=== PATIENT | male | born 1980 | race Caucasian/White ===

== ENCOUNTER 2017-04-05 16:18 | Emergency (ER) | payer SELFPAY ==
[2017-04-05 16:23] VITALS: BP 128/88; BMI 26.6
[2017-04-05 18:34] LABS: BASOPHILS # (AUTO) 0.1 X10^3/uL (0.0-0.1); BASOPHILS % (AUTO) 0.9 % (0.2-1.0); EOSINOPHILS # (AUTO) 0.1 x10^3/uL (0.0-0.2); EOSINOPHILS % (AUTO) 0.8 % (0.9-2.9); HEMATOCRIT 47.2 % (42.0-54.0); HEMOGLOBIN 16.3 g/dL (13.5-18.0); LYMPHOCYTES # (AUTO) 1.6 X10^3/uL (1.3-2.9); MEAN CORPUSCULAR HEMOGLOBIN 31.8 pg (27.0-34.0); MEAN CORPUSCULAR HGB CONC 34.4 g/dL (33.0-35.0); MEAN CORPUSCULAR VOLUME 92.3 fL (80.0-100.0); MEAN PLATELET VOLUME 8.8 fL (7.4-11.0); NEUTROPHILS # (AUTO) 9.3 x10^3/uL (2.2-4.8); NEUTROPHILS % (AUTO) 77.3 % (42.0-75.0); PLATELET COUNT 320 X10^3/uL (150.0-450.0); RED BLOOD COUNT 5.12 X10^6/uL (4.7-6.0); RED CELL DISTRIBUTION WIDTH 13.2 % (11.6-16.5)
[2017-04-05 18:44] LABS: ALANINE AMINOTRANSFERASE 132 Units/L (12-78); ALBUMIN 3.8 g/dL (3.4-5.0); ALKALINE PHOSPHATASE 69 Units/L (46-116); ASPARTATE AMINO TRANSFERASE 70 Units/L (15-37); BLOOD UREA NITROGEN 10 mg/dL (7-18); CALCIUM 9.2 mg/dL (8.5-10.1); CARBON DIOXIDE 29.9 mmol/L (21-32); CHLORIDE 104 mmol/L (98-107); CREATININE 0.95 mg/dL (0.70-1.30); SODIUM 140 mmol/L (136-145); eGFR BLACK RACES > 60 (>60); eGFR NON BLACK RACES > 60 (>60)
[2017-04-05 18:54] LABS: LACTIC ACID 1.2 mmol/L (0.4-2.0)
[2017-04-05] MEDS ORDERED: CLEOCIN 300 MG IV PREMIX 300 MG/50 ML BAG IV ONE ×2 (19:10→19:23)
[2017-04-05] MEDS ORDERED: CLEOCIN 600 MG IV PREMIX 600 MG/50 ML BAG IV ONE (19:11)
[2017-04-05] MEDS ORDERED: NS 100 ML IV 100 ML IV ONE (19:24)
[2017-04-05] MEDS ORDERED: NS IRRIGATION 1000 ML 1,000 ML ONE (19:24)
[2017-04-05] MEDS ORDERED: CLEOCIN VIAL 600 MG ONE (19:24)
[2017-04-05] MEDS ORDERED: NS 50 ML IV 0 ML IV ONE (19:25)
--- NOTE | 2017-04-05 19:25 | DR.GENAD ---
HPI - PCP Primary Care Physician: NONE - Complaint/Symptoms Chief Complaint Doctors Comments: Patient presents with a oozing lesion of volar surface of right upper extremity. He states that the lesion has been present for 3-4 days. He denies fever. Chief Complaint:: "I THINK A SPIDER BITE ME OR STAPH." Self Treatment fo Chief Complaint: NONE - Source History Provided: Patient - Mode of Arrival Mode of Arrival: Ambulatory - Timing Onset of Chief Complaint: 03/30/17 PMH - PMH Past Medical History: No Past Surgical History: Yes Past Surgical History Comment: HERNIA SURGERY - Family History History of Family Medical Conditions: No Family Medical History: Cancer - Social History Does patient currently use any type of tobacco product: Yes Have you used tobacco products in the last 12 months: Yes Type of Tobacco Use: Cigarettes How many years tobacco product used: 20 Does any household member use tobacco: Yes Alcohol Use: None Do you use any recreational Drugs:: No Lives With: Family Lives Where: Home - infectious screening In the last 2 months have you had wt loss of >10#?: NO Have you had fever, night sweats or hemotysis?: No Have you traveled outside the country in the last 6 months?: No Isolation: Standard ROS - Review of Systems Eyes: No Symptoms Reported ENTM: No Symptoms Reported Respiratoy: No Symptoms Reported Cardiovascular: No Symptoms Reported Gastrointestinal/Abdominal: No Symptoms Reported Genitourinary: No Symptoms Reported Neurological: No Symptoms Reported Musculoskeletal: No Symptoms Reported Integumentary: Lesions (3cm circular lesion right proximal forearm) Hematologic/Lymphatic: No Symptoms Reported Endocrine: No Symptoms Reported Psychiatric: No Symptoms Reported All Other Systems: Reviewed and Negative PE - Vital Signs Vitals: Temperature 98.5 F Pulse Rate 119 Respiratory Rate 20 Blood Pressure 128/88 O2 Sat by Pulse Oximetry 96 - General Limitations: No Limitations General Appearance: Alert, In No Apparent Distress - Head Head Exam: Normal Inspection, Atraumatic - Eyes Eye exam: Normal Appearance, PERRL, EOMI - ENT ENT Exam: Normal Exam External Ear Exam: Normal External Inspection TM/Canal Exam: Bilateral Normal Nose Exam: Normal Nose Exam Mouth Exam: Normal Inspection Throat Exam: Normal Inspection - Neck Neck Exam: Normal Inspection, Full ROM - Chest Chest Inspection: Normal Inspection - Respiratory Respiratory Exam: Normal Lung Sounds Bilat Respiratory Exam: Bilateral Clear to Auscultation - Cardiovascular Cardiovascular Exam: Regular Rate, Normal Rhythm - Abdominal Exam Abdominal Exam: Normal Inspection, Normal Bowel Sounds Abdominal Tenderness: negative: RUQ, RLQ, LUQ, LLQ, Epigastrium, Suprapubic, Diffuse, Mild, Moderate, Severe, Other - Extremities Extremities Exam: Normal Inspection, Full ROM, Tenderness - Back Back Exam: Normal Inspection, Full ROM - Neurologic Neurological Exam: Alert, Oriented X3, CN II-XII Intact - Psychiatric Psychiatric Exam: Normal Affect - Skin Skin Exam: Warm, Dry, Intact Course - Treatment Treatment: Lesion irrigated, cleaned with dankin soln and iodoform gauze dressed by nurse. 1%lidocaine used for analgesis. Tolerated procedure well. Blood cultures obtained - Reevaluation 1st: Improved ROR - Labs Reviewed Result Diagrams: 04/05/17 18:23 04/05/17 18: Laboratory: 04/05/17 18: Arm - Abscess Gram Stain - Final WBC 12.0 X10^3/uL (3.6-10.0) H 04/05/17 18: RBC 5.12 X10^6/uL (4.7-6.0) 04/05/17 18:23 Hgb 16.3 g/dL (13.5-18.0) 04/05/17 18:23 Hct 47.2 % (42.0-54.0) 04/05/17 18:23 MCV 92.3 fL (80.0-100.0) 04/05/17 18:23 MCH 31.8 pg (27.0-34.0) 04/05/17 18: MCHC 34.4 g/dL (33.0-35.0) 04/05/17 18:23 RDW 13.2 % (11.6-16.5) 04/05/17 18:23 Plt Count 320 X10^3/uL (150.0-450.0) 04/05/17 18: MPV 8.8 fL (7.4-11.0) 04/05/17 18:23 Neut % 77.3 % (42.0-75.0) H 04/05/17 18:23 Lymph % 13.0 % (21.0-51.0) L 04/05/17 18: Placer % 8.0 % (0.0-13.0) 04/05/17 18:23 Eos % 0.8 % (0.9-2.9) L 04/05/17 18:23 Baso % 0.9 % (0.2-1.0) 04/05/17 18:23 Neut # 9.3 x10^3/uL (2.2-4.8) H 04/05/17 18:23 Lymph # 1.6 X10^3/uL (1.3-2.9) 04/05/17 18: Placer # 1.0 x10^3/uL (0.3-0.8) H 04/05/17 18:23 Eos # 0.1 x10^3/uL (0.0-0.2) 04/05/17 18: Baso # 0.1 X10^3/uL (0.0-0.1) 04/05/17 18:23 Absolute Nucleated RBC 0.0 /100WBC 04/05/17 18:23 Sodium 140 mmol/L (136-145) 04/05/17 18:23 Corrected Sodium TNP 04/05/17 18:23 Potassium 4.5 mmol/L (3.5-5.1) 04/05/17 18:23 Chloride 104 mmol/L (98-107) 04/05/17 18:23 Carbon Dioxide 29.9 mmol/L (21-32) 04/05/17 18:23 BUN 10 mg/dL (7-18) 04/05/17 18:23 Creatinine 0.95 mg/dL (0.70-1.30) 04/05/17 18:23 Est GFR (MDRD) Af Amer > 60 (>60) 04/05/17 18:23 Est GFR (MDRD) Non-Af > 60 (>60) 04/05/17 18:23 Glucose 99 mg/dL (65-99) 04/05/17 18:23 Lactic Acid 1.2 mmol/L (0.4-2.0) 04/05/17 18:23 Calcium 9.2 mg/dL (8.5-10.1) 04/05/17 18:23 Corrected Calcium TNP 04/05/17 18:23 Total Bilirubin 0.30 mg/dL (0.2-1.0) 04/05/17 18:23 AST 70 Units/L (15-37) H 04/05/17 18:23 ALT 132 Units/L (12-78) H 04/05/17 18:23 Alkaline Phosphatase 69 Units/L (46-116) 04/05/17 18:23 C-Reactive Protein 11.10 mg/L (0-3.0) H 04/05/17 18:23 Total Protein 8.0 g/dL (6.4-8.2) 04/05/17 18:23 Albumin 3.8 g/dL (3.4-5.0) 04/05/17 18:23 Globulin 4.2 g/dL (2.5-4.5) 04/05/17 18:23 Albumin/Globulin Ratio 0.9 Ratio (1.1-2.1) L 04/05/17 18:23 - Diagnosis Discharge Problem: Cellulitis of forearm, right - Discharge Plan Condition: Stable - Follow ups/Referrals Follow ups/Referrals: NFD,None [Primary Care Provider] - 3 days - Instructions
[2017-04-05] MEDS ORDERED: D5W 250 ML IV 250 ML IV ONE (19:26)
[2017-04-05] MEDS ORDERED: XYLOCAINE 1% and EPINEPHRINE 1:100,000 ONE (19:36)
[2017-04-05] MEDS ORDERED: DAKINS SOLUTION HALF STRENGTH 0.25% EXT ONE (20:10)
== END 2017-04-05 20:45 | disposition home or self-care (01) ==
LOC: ER 17:24
DX: L03.113 Cellulitis of right upper limb (principal); B95.62 Methicillin resistant Staphylococcus aureus infection as the cause of diseases classified elsewhere
CPT/HCPCS: 36415; 80053; 83605; 85025; 86140; 87070; 87077; 87186; 87205; 96365; 96374; 96375; 99283; A4222; S0077; J2001

== ENCOUNTER → 2017-08-14 | Day surgery (SDC) | payer OTHER ==
[~2017-08-14] MED LIST: ANCEF 1 GM IV PREMIX* 1 GM/50 ML BAG IV ONE; BENADRYL INJ 50 MG VIAL IVP PRN; DECADRON INJ ONE; DEMEROL INJ IVP PRN; DILAUDID INJ IVP PRN; DIPRIVAN VIAL ONE; EPHEDRINE SULFATE INJ ONE; FENTANYL INJ 250 mcg ONE; LTA KIT LIDOCAINE 4% ONE; MARCAINE 0.25% INJ ONE; NEOSTIGMINE INJ ONE; NORCURON INJ 10 MG VIAL ONE; NS 1000 ML 1,000 ML ONE; NS 500 ML IV 500 ML IV ONE; NS IRRIGATION 1000 ML 1,000 ML IR ONE; PERCOCET TAB 5/325 MG PO PRN; PHENERGAN INJ 25 MG IVP PRN; QUELICIN (OR ANECTINE) ONE; REGLAN INJ 10 MG VIAL IVP PRN; ROBINUL ONE; SUPRANE IN ONE; TORADOL 60 MG VIAL IM ONE; TORADOL 60 MG VIAL ONE; VANCOMYCIN HCL 1 GM VIAL ONE; VERSED ONE; XYLOCAINE 1% and EPINEPHRINE 1:100,000 ONE; XYLOCAINE 2 % (PLAIN) ONE; ZOFRAN INJ 4 MG VIAL IVP PRN; ZOFRAN INJ 4 MG VIAL ONE
--- NOTE | 2017-08-14 08:39 | DR.GENAD ---
HPI - PCP Primary Care Physician: NFD - Complaint/Symptoms Chief Complaint Doctors Comments: Patient is complaining of right lower pelvic pain that goes to his scrotum for the past 2-3 days getting worst today. Patient states he has a hernia that was fixed by Dr. Simon before he and he was told not to worry if he can make it go back down but recently he has not been able to have the swelling in his right inguinal area togo away completely. states the pain is 10 of10 and is worst when he moves. He denies fever, chills, nausea or vomiting. He denies hematuria,nocturia but has noticed that he does not empty his bladder completely when he urinates. He denies any recent trauma. Chief Complaint:: PT C/O RT GROIN AND RT SCROTAL PAIN. PT STATES HE HAS A HISTORY A HERNIA I THE SAME PLACE WHICH HE HAS HAD REPAIRED. PT STATES THE PAST FEW DAYS HE HAS NOTICED IT GETTING BIGGER IN SIZE AND THE PAIN HAS BEEN UNBEARABLE. - Nurses notes reviewed Nurses Notes Review: Yes - Source History Provided: Patient, [employer] - Mode of Arrival Mode of Arrival: Ambulatory - Timing Onset of Chief Complaint: 08/12/17 Came on: Gradually - Duration Duration: Intermittent How lon Duration: Days - Location Location: right groin - Severity Severity: Moderate - Modifying Factors Worsens:: movement and walking Improves:: nothing PMH - PMH Past Medical History: No Past Surgical History: Yes Past Surgical History Comment: HERNIA REPAIR - Family History History of Family Medical Conditions: Yes Family Medical History: Cancer - Social History Does patient currently use any type of tobacco product: Yes Have you used tobacco products in the last 12 months: Yes Type of Tobacco Use: Cigarettes Does any household member use tobacco: Yes Alcohol Use: None Do you use any recreational Drugs:: No Lives With: Other Lives Where: Home - infectious screening In the last 2 months have you had wt loss of >10#?: NO Have you had fever, night sweats or hemotysis?: No Have you traveled outside the country in the last 6 months?: No Isolation: Standard ROS - Review of Systems Constitutional: No Symptoms Reported. negative: See HPI, Chills, Diaphoresis, Fever, Malaise, Weakness, Irritable, Fatigue, Loss of Appetite, Other Eyes: No Symptoms Reported ENTM: No Symptoms Reported Respiratoy: No Symptoms Reported Cardiovascular: No Symptoms Reported. negative: See HPI, Chest Pain, Edema, Palpitations, Syncope, Cyanosis, Skin Mottling, Other Gastrointestinal/Abdominal: No Symptoms Reported. negative: See HPI, Abdominal Pain, Constipation, Diarrhea, Nausea, Vomiting, Food Intolerance, Other Genitourinary: No Symptoms Reported. negative: See HPI, Discharge, Dysuria, Frequency, Hematuria, Pain, Bleeding, Other Neurological: No Symptoms Reported Musculoskeletal: No Symptoms Reported Integumentary: No Symptoms Reported Hematologic/Lymphatic: No Symptoms Reported. negative: See HPI, Anemia, Blood Clots, Easy Bleeding, Easy Bruising, Swollen Glands, Lymphadenopathy, Other Endocrine: No Symptoms Reported Psychiatric: No Symptoms Reported PE - Vital Signs Vitals: Temperature 98.7 F Pulse Rate 79 Respiratory Rate 20 Blood Pressure 147/71 O2 Sat by Pulse Oximetry 100 - General Limitations: No Limitations General Appearance: Alert, In Distress (mild) - Head Head Exam: Normal Inspection, Atraumatic, Normocephalic - Eyes Eye exam: Normal Appearance, PERRL, EOMI. negative: Scleral Icterus, Conjunctival Injection, Nystagmus, Miosis, Mydrasis, Periorbital Swelling, Periorbital Tenderness, Other - ENT ENT Exam: Normal Exam, Normal Oropharynx, Normal External Ear Exam, Mucous Membranes Moist, TM's Normal Bilaterally External Ear Exam: Normal External Inspection TM/Canal Exam: Bilateral Normal Nose Exam: Normal Nose Exam Mouth Exam: Normal Inspection. negative: Drooling, Trismus, Lip Swelling, Tongue Elevation, Tongue Swelling, Laceration, Other Throat Exam: Normal Inspection - Neck Neck Exam: Normal Inspection, Full ROM, Trachea Midline. negative: Tenderness, Meningismus, Lymphadenopathy, Thyromegaly, Other - Chest Chest Inspection: Normal Inspection, Symmetric Chest Wall Rise - Respiratory Respiratory Exam: Normal Lung Sounds Bilat Respiratory Exam: Bilateral Clear to Auscultation - Cardiovascular Cardiovascular Exam: Regular Rate, Normal Rhythm, Normal Heart Sounds. negative : Bradycardia, Tachycardia, Irregular Rhythm, Systolic Murmur, Diastolic Murmur , Rubs, Gallop, Clicks, JVD, +S1, +S2, +S3, +S4, Other - Abdominal Exam Abdominal Exam: Normal Inspection, Normal Bowel Sounds, Soft Abdominal Tenderness: RLQ (right inguinal hernia 6 cm reduciable; tender. Scrotal exam normal; circucised;no penile discharge). negative: RUQ, LUQ, LLQ, Epigastrium, Suprapubic, Diffuse, Mild, Moderate, Severe, Other - Extremities Extremities Exam: Normal Inspection, Full ROM, Normal Capillary Refill. negative: Tenderness, Edema, Joint Swelling, Calf Tenderness, Other - Back Back Exam: Normal Inspection, Full ROM. negative: Tenderness, (R) CVA Tenderness, (L) CVA Tenderness, Muscle Spasm, Paraspinal Tenderness, Vertebral Tenderness, Rashes, (R) Sciatic Notch Tenderness, (L) Sciatic Notch Tendern, (R ) Straight Leg Raise, (L) Straight Leg Raise, Other - Neurologic Neurological Exam: Alert, Oriented X3, CN II-XII Intact, Reflexes Normal. negative: Normal Gait (gait not tested) - Psychiatric Psychiatric Exam: Normal Affect, Normal Mood - Skin Skin Exam: Warm, Dry, Intact, Normal Color Course - Consultation Called: 09:35 Call Returned: 09:35 (Dr. Donnelly to evaluate) - Education/Counseling Education/Counseling: Patient Educated On: Treatment, Diagnosis, Needs for Follow Up ROR - Labs Reviewed Laboratory Results Reviewed?: Yes (all x-ray results reviewed and discussed with patient) Laboratory: Specimen Type Random urine 08/14/17 09:36 Urine Color Yellow (YELLOW) 08/14/17 09:36 Urine Appearance Clear (CLEAR) 08/14/17 09:36 Urine pH 5.0 (5.0 - 8.0) 08/14/17 09:36 Ur Specific [place] 1.020 (1.000-1.030) 08/14/17 09:36 Urine Protein 1+ (NEGATIVE) 08/14/17 09:36 Urine Glucose (UA) Negative (NEGATIVE) 08/14/17 09:36 Urine Ketones Negative (NEGATIVE) 08/14/17 09:36 Urine Occult Blood 2+ (NEGATIVE) 08/14/17 09:36 Urine Nitrite Negative (NEGATIVE) 08/14/17 09:36 Urine Bilirubin Negative (NEGATIVE) 08/14/17 09:36 Urine Urobilinogen Normal (NORMAL) 08/14/17 09:36 Ur Leukocyte Esterase 1+ (NEGATIVE) 08/14/17 09:36 Urine RBC 0 - 2 /HPF (NEGATIVE) 08/14/17 09:36 Urine WBC 0 - 2 /HPF (NEGATIVE) 08/14/17 09:36 Ur Squamous Epith Cells Rare /HPF (NEGATIVE) 08/14/17 09:36 Amorphous Sediment Trace /HPF (NEGATIVE) 08/14/17 09:36 Urine Bacteria Negative /HPF (NEGATIVE) 08/14/17 09:36 Ur Culture Indicated? No/not indicated 08/14/17 09:36 Urine Opiates Screen Negative (NEG=<300) 08/14/17 09:37 Urine Methadone Screen Negative (NEG=<300) 08/14/17 09:37 Ur Barbiturates Screen Negative (NEG=<200) 08/14/17 09:37 Ur Phencyclidine Scrn Negative (NEG=<25) 08/14/17 09:37 Ur Amphetamines Screen Negative (NEG=<1000) 08/14/17 09:37 U Benzodiazepines Scrn Negative (NEG=<200) 08/14/17 09:37 Urine Cocaine Screen Negative (NEG=<300) 08/14/17 09:37 U Marijuana (THC) Screen Negative (NEG=<50) 08/14/17 09:37 - XRAY XRAY Interpreted by: Radiologist (CT abdomen: Right inguinal hernia containing fat and loop of small bowel wome evidence of stranding of fat within the hernia suggesting inflammation.) - Diagnosis Discharge Problem: Right inguinal hernia, possible incarcerated inguinal hernia - Discharge Plan Disposition: ADMITTED INPATIENT Condition: Stable - Follow ups/Referrals Follow ups/Referrals: NFD,None [Primary Care Provider] - 3 days - Instructions
[2017-08-14 08:40] VITALS: BMI 25.8
--- NOTE | 2017-08-14 09:02 | CT ---
STUDY: CT ABDOMEN AND PELVIS WITHOUT IV AND ORAL CONTRAST HISTORY: Right groin right scrotal pain. History of hernia. Comparison: None. Technique: Multiple axial images of the abdomen and pelvis were obtained from the lung bases to the pubic symphysis without the administration of IV contrast. Findings: The visualized portions of the lung bases are unremarkable. CT abdomen: The liver, gallbladder, spleen, pancreas, both kidneys and adrenal glands are normal in appearance. N o significant mesenteric lymphadenopathy or inflammatory stranding is appreciated. The stomach is normal in appearance. The small bowel is normal in appearance, without evidence of bow el wall thickening or small bowel obstruction. The terminal ileum and cecum are normal. The appendix is normal in appearance. There is no evidence of right lower quadrant fat stranding. The ascending a nd transverse colon are within normal limits. The descending colon is normal in appearance. CT pelvis: Note is made of a right inguinal hernia. This contains both fat and a small loop of bowel, likely loop of ileum. There is mild stranding of fat contained within the inguinal hernia. The sigmo id colon is normal in appearance. The rectum is normal. The urinary bladder is normal. No abnormal fl uid collections are identified in the pelvis. There is no evidence of acute osseous abnormality. IMPRESSION: 1. Right inguinal hernia containing fat and a loop of small bowel. No abnormal fluid collections are identified, and there is no evidence of dilated uterine loop. However, there does appear to be some evidence of stranding of fat within the hernia suggesting inflammation. Clinical correlation for inca rceration or strangulation is recommended. Reported By:
[2017-08-14 09:48] LABS: BILIRUBIN,URINE NEGATIVE (NEGATIVE); BLOOD/HEMOGLOBIN,URINE 2+ (NEGATIVE); GLUCOSE, URINE NEGATIVE (NEGATIVE); KETONES,URINE NEGATIVE (NEGATIVE); LEUKOCYTE ESTERASE ,URINE 1+ (NEGATIVE); NITRITES,URINE NEGATIVE (NEGATIVE); PROTEIN,URINE 1+ (NEGATIVE); UROBILINOGEN,URINE NORMAL (NORMAL)
[2017-08-14 09:55] LABS: APPEARANCE,URINE CLEAR (CLEAR); COLOR,URINE YELLOW (YELLOW)
[2017-08-14 10:03] LABS: BACTERIA,URINE NEGATIVE /HPF (NEGATIVE); RBC,URINE 0 - 2 /HPF (NEGATIVE); SQUAMOUS EPITHELIAL CELL,UR RARE /HPF (NEGATIVE)
[2017-08-14 10:04] LABS: AMORPHOUS SEDIMENT,UR TRACE /HPF (NEGATIVE)
[2017-08-14 11:34] LABS: BASOPHILS # (AUTO) 0.1 X10^3/uL (0.0-0.1); BASOPHILS % (AUTO) 1.1 % (0.2-1.0); EOSINOPHILS # (AUTO) 0.1 x10^3/uL (0.0-0.2); EOSINOPHILS % (AUTO) 0.7 % (0.9-2.9); HEMATOCRIT 44.5 % (42.0-54.0); HEMOGLOBIN 15.3 g/dL (13.5-18.0); LYMPHOCYTES # (AUTO) 1.9 X10^3/uL (1.3-2.9); MEAN CORPUSCULAR HGB CONC 34.4 g/dL (33.0-35.0); MEAN CORPUSCULAR VOLUME 92.8 fL (80.0-100.0); MEAN PLATELET VOLUME 8.8 fL (7.4-11.0); MONOCYTES # (AUTO) 0.7 x10^3/uL (0.3-0.8); MONOCYTES % (AUTO) 7.4 % (0.0-13.0); NEUTROPHILS # (AUTO) 6.4 x10^3/uL (2.2-4.8); NEUTROPHILS % (AUTO) 69.8 % (42.0-75.0); PLATELET COUNT 294 X10^3/uL (150.0-450.0); RED BLOOD COUNT 4.79 X10^6/uL (4.7-6.0); RED CELL DISTRIBUTION WIDTH 13.1 % (11.6-16.5); WHITE BLOOD COUNT 9.1 X10^3/uL (3.6-10.0)
[2017-08-14 11:49] LABS: ALANINE AMINOTRANSFERASE 116 Units/L (12-78); ALBUMIN 4.3 g/dL (3.4-5.0); ALKALINE PHOSPHATASE 59 Units/L (46-116); ASPARTATE AMINO TRANSFERASE 56 Units/L (15-37); BLOOD UREA NITROGEN 9 mg/dL (7-18); CALCIUM 9.1 mg/dL (8.5-10.1); CARBON DIOXIDE 26.4 mmol/L (21-32); CHLORIDE 101 mmol/L (98-107); CREATININE 0.78 mg/dL (0.70-1.30); SODIUM 132 mmol/L (136-145); eGFR BLACK RACES > 60 (>60); eGFR NON BLACK RACES > 60 (>60)
[2017-08-14] MEDS: NS 1000 ML 1,000 ML ONE ×2 (13:26→13:51)
--- NOTE | 2017-08-14 14:37 | OR.GENERIC ---
Post-Op Note Generic - Post-Op Note Operative Report: Date of Operation: August 14, 2017 Pre-Operative Diagnosis: Recurrent incarcerated right inguinal hernia. Post-Operative Diagnosis: Recurrent incarcerated right indirect inguinal hernia. Procedure: Open inguinal hernia repair with plug and mesh. Surgeon: Bairon Donnelly MD. Heel Sprayer First: Usman Cruz CRNA. Specimens: None. Estimated blood loss: Minimal. Complications: None. Summary: The patient is a 37 year old male who presented with an incarcerated recurrent right inguinal hernia. The patient was offered inguinal hernia repair. The risk and benefits of the procedure including difficulty with anesthesia, bleeding, infection, injury to intraabdominal contents requiring further surgery , recurrence, nerve injury, injury to cord structures requiring orchiectomy, DVT , as well as PE were discussed with the patient. The patient understood these risks and requested the procedure. On August 14, 2017, the patient was brought to the operative theatre. A time out was performed verifying the patient and procedure. The patient received Ancef for pre-operative antibiosis. After satisfactory induction of general endotracheal anesthesia, the abdomen and groin were prepped with Chloraprep and draped in the usual sterile fashion. Local anesthetic was infiltrated one fingerbreadth medial and inferior to the right anterior superior iliac spine ( ASIS). Next the skin between the pubic tubercle and the ASIS was anesthetized using local and incised with a scalpel. The incision was carried through the subcutaneous tissue and Scarpas fascia using electrocautery. The external oblique fibers were cleared bluntly. Local was injected under the oblique fibers. The external oblique was nicked with a scalpel and divided using Metzenbaum scissors taking care to avoid nerves. The external obliques were mobilized using blunt dissection. Extensive scar tissue was seen. After tedious dissection, the cord structures were encircled at the pubic tubercle and a stephanie placed around the cord. A hernia sac was bluntly dissected away from the cord structures. A mesh plug was placed beside the cord in the internal ring and tacked into position with 0-Vicryl sutures. Weakening of the floow was noted near the pubic tubercle. A Prolene mesh was fashioned to fit the inguinal floor. The apex of the mesh was anchored to the periosteum at the pubic tubercle with a 2-0 Prolene suture. The superior portion of the mesh was attached to the conjoined tendon using interrupted 2-0 Prolene sutures. The inferior portion of the mesh was sutured to the shelving portion of the inguinal ligament using interrupted 2-0 Prolene sutures. The external oblique fibers were re-approximated using a running 2-0 Vicryl suture. Scarpas fascia was re-approximated using interrupted 3-0 Vicryl sutures. The dermis was re- approximated using inverted, interrupted 3-0 Vicryl sutures. The skin edges were re-approximated using a running 4-0 Monocryl stitch. Mastisol and Steri- strips were placed. Sterile dressings were placed. The right testicle was palpated in the scrotum. The patient was awakened and taken to the recovery room in stable condition. There were no complications. All counts were correct.
[2017-08-14 15:51] VITALS: BP 143/70
== END | disposition home or self-care (01) ==
LOC: ER 08:39 → SURG1 11:45
PROVIDERS: ATTEND Student in an Organized Health Care Education/Training Program
PROC: 0YU50JZ Supplement Right Inguinal Region with Synthetic Substitute, Open Approach (ICD-10-PCS; principal; 2017-08-14 11:30)
DX: K40.31 Unilateral inguinal hernia, with obstruction, without gangrene, recurrent (principal); Z01.810 Encounter for preprocedural cardiovascular examination
CPT/HCPCS: 36415; 74176; 80053; 80307; 81001; 85025; 85610; 85730; 93005; 93010; 96365; 96372; 99284; A4216; A4222; S0020; G0434; J0330; J0690; J1100; J1885; J2001; J2250; J2405; J2710; J3010; J3370; J3490

== ENCOUNTER 2017-09-04 01:57 | Observation (INO) | payer OTHER ==
[2017-09-04] MEDS ORDERED: TORADOL 60 MG VIAL IM ONE (02:25)
--- NOTE | 2017-09-04 02:25 | DR.GENAD ---
HPI - PCP Primary Care Physician: NFD - Complaint/Symptoms Chief Complaint Doctors Comments: Patient states he had right inguinal surgery about two weeks ago with Dr. Donnelly and saw his nurse in the office five days ago and was told that it may take a little time to heal completely. States he has a bulge in his right inguinal area were he had the surgery with pain. States the pain is 8 of 10 and has been hurting all the time tonight. He denies dysuria, fever, chills, hematuria or problems with kidney stones. States he had a Motrin earlier today but it did not help his pain. States his appetite has been good and has had some nauea but denies vomiting or diarrhea or constipation. States he has been having pain going down his right testicle. He denies any heavy lifting or recent trauma. Chief Complaint:: HERNIA SURGICALLY REPAIRED APPROX 2 WEEKS AGO; EXPERIENCING PAIN; TESTICALS ARE BLUE AND PAINFUL - Nurses notes reviewed Nurses Notes Review: Yes - Source History Provided: Patient - Mode of Arrival Mode of Arrival: Ambulatory - Timing Onset of Chief Complaint: 09/04/17 Came on: Gradually - Duration Duration: Constant How lon Duration: Days - Location Location: right testicle pain - Severity Severity: Moderate - Modifying Factors Worsens:: nothing Improves:: nothing PMH - PMH Past Medical History: No Past Surgical History: No - Family History History of Family Medical Conditions: No Family Medical History: Cancer - Social History Do you use any recreational Drugs:: No - infectious screening Have you traveled outside the country in the last 6 months?: No ROS - Review of Systems Constitutional: No Symptoms Reported. negative: See HPI, Chills, Diaphoresis, Fever, Malaise, Weakness, Irritable, Fatigue, Loss of Appetite, Other Eyes: No Symptoms Reported ENTM: No Symptoms Reported. negative: See HPI, Ear Pain, Ear Discharge, Pulling on Ears, Hearing Loss, Nose Pain, Nose Discharge, Epistaxis, Nose Congestion, Mouth Pain, Mouth Swelling, Loose Teeth, Drooling, Throat Pain, Throat Swelling, Ear Foreign Body Respiratoy: No Symptoms Reported Cardiovascular: No Symptoms Reported Gastrointestinal/Abdominal: No Symptoms Reported, Abdominal Pain (right inguinal pain), Nausea. negative: See HPI, Constipation, Diarrhea, Vomiting, Food Intolerance, Other Genitourinary: No Symptoms Reported. negative: See HPI, Discharge, Dysuria, Frequency, Hematuria, Pain, Bleeding, Other Neurological: No Symptoms Reported Musculoskeletal: No Symptoms Reported Integumentary: No Symptoms Reported. negative: See HPI, Change in Color, Change in Hair/Nails, Dryness, Lesions, Lumps, Rash, Itching, Wound, Bruises, Juandice, Other Hematologic/Lymphatic: No Symptoms Reported Endocrine: No Symptoms Reported Psychiatric: No Symptoms Reported. negative: See HPI, Anxiety, Depression, Hallucinations, Excessive crying, Suicidal, Other PE - Vital Signs Vitals: Temperature 99.1 F Blood Pressure [Right Arm] 138/65 Blood Pressure 143/70 - General Limitations: No Limitations General Appearance: Alert, In Distress (mild) - Head Head Exam: Normal Inspection, Atraumatic, Normocephalic - Eyes Eye exam: Normal Appearance, PERRL, EOMI. negative: Scleral Icterus, Conjunctival Injection, Nystagmus, Miosis, Mydrasis, Periorbital Swelling, Periorbital Tenderness, Other - ENT ENT Exam: Normal Exam, Normal Oropharynx, Normal External Ear Exam, Mucous Membranes Moist, TM's Normal Bilaterally External Ear Exam: Normal External Inspection TM/Canal Exam: Bilateral Normal Nose Exam: Normal Nose Exam Mouth Exam: Normal Inspection Throat Exam: Normal Inspection. negative: Tonsillar Erythema, Tonsillomegaly, Tonsillar Exudate, R Peritonsillar Mass, L Peritonsillar Mass, Muffled Voice, Other - Neck Neck Exam: Normal Inspection, Full ROM, Trachea Midline - Chest Chest Inspection: Normal Inspection, Symmetric Chest Wall Rise - Respiratory Respiratory Exam: Normal Lung Sounds Bilat Respiratory Exam: Bilateral Clear to Auscultation - Cardiovascular Cardiovascular Exam: Regular Rate, Normal Rhythm, Normal Heart Sounds - Abdominal Exam Abdominal Exam: Normal Inspection, Normal Bowel Sounds, Soft, Tenderness (right inguinal tenderness), Hernia (right inguinal hernia 6-7 cm reduciable) Abdominal Tenderness: RLQ, Mild - Extremities Extremities Exam: Normal Inspection, Full ROM, Normal Capillary Refill. negative: Tenderness, Edema, Joint Swelling, Calf Tenderness, Other - Back Back Exam: Normal Inspection, Full ROM. negative: Tenderness, (R) CVA Tenderness, (L) CVA Tenderness, Muscle Spasm, Paraspinal Tenderness, Vertebral Tenderness, Rashes, (R) Sciatic Notch Tenderness, (L) Sciatic Notch Tendern, (R ) Straight Leg Raise, (L) Straight Leg Raise, Other - Neurologic Neurological Exam: Alert, Oriented X3, CN II-XII Intact, Normal Gait, Reflexes Normal - Psychiatric Psychiatric Exam: Normal Affect, Normal Mood - Skin Skin Exam: Warm, Dry, Intact, Normal Color. negative: Rash, Cyanosis, Diaphoresis, Erythema, Pallor, Mottled, Other ROR - Labs Reviewed Laboratory Results Reviewed?: Yes (all labs and x-ray results reviewed and discussed with patient) Result Diagrams: 09/04/17 02:25 09/04/17 02:25 Laboratory: WBC 8.0 X10^3/uL (3.6-10.0) 09/04/17 02:25 RBC 4.66 X10^6/uL (4.7-6.0) L 09/04/17 02:25 Hgb 14.8 g/dL (13.5-18.0) 09/04/17 02:25 Hct 43.6 % (42.0-54.0) 09/04/17 02:25 MCV 93.6 fL (80.0-100.0) 09/04/17 02:25 MCH 31.7 pg (27.0-34.0) 09/04/17 02:25 MCHC 33.9 g/dL (33.0-35.0) 09/04/17 02:25 RDW 13.1 % (11.6-16.5) 09/04/17 02:25 Plt Count 289 X10^3/uL (150.0-450.0) 09/04/17 02:25 MPV 9.9 fL (7.4-11.0) 09/04/17 02:25 Neut % 49.3 % (42.0-75.0) 09/04/17 02:25 Lymph % 34.6 % (21.0-51.0) 09/04/17 02:25 [place] % 11.5 % (0.0-13.0) 09/04/17 02:25 Eos % 3.5 % (0.9-2.9) H 09/04/17 02:25 Baso % 1.1 % (0.2-1.0) H 09/04/17 02:25 Neut # 3.9 x10^3/uL (2.2-4.8) 09/04/17 02:25 Lymph # 2.8 X10^3/uL (1.3-2.9) 09/04/17 02:25 [place] # 0.9 x10^3/uL (0.3-0.8) H 09/04/17 02:25 Eos # 0.3 x10^3/uL (0.0-0.2) H 09/04/17 02:25 Baso # 0.1 X10^3/uL (0.0-0.1) 09/04/17 02:25 Absolute Nucleated RBC 0.0 /100WBC 09/04/17 02:25 Sodium 147 mmol/L (136-145) H 09/04/17 02:25 Corrected Sodium 147 mmol/L (136-145) H 09/04/17 02:25 Potassium 4.0 mmol/L (3.5-5.1) 09/04/17 02:25 Chloride 109 mmol/L (98-107) H 09/04/17 02:25 Carbon Dioxide 29.0 mmol/L (21-32) 09/04/17 02:25 BUN 15 mg/dL (7-18) 09/04/17 02:25 Creatinine 0.89 mg/dL (0.70-1.30) 09/04/17 02:25 Est GFR (MDRD) Af Amer > 60 (>60) 09/04/17 02:25 Est GFR (MDRD) Non-Af > 60 (>60) 09/04/17 02:25 Glucose 120 mg/dL (65-99) H 09/04/17 02:25 Calcium 8.4 mg/dL (8.5-10.1) L 09/04/17 02:25 Corrected Calcium TNP 09/04/17 02:25 Total Bilirubin 0.20 mg/dL (0.2-1.0) 09/04/17 02:25 AST 30 Units/L (15-37) 09/04/17 02:25 ALT 87 Units/L (12-78) H 09/04/17 02:25 Alkaline Phosphatase 58 Units/L (46-116) 09/04/17 02:25 Total Protein 7.7 g/dL (6.4-8.2) 09/04/17 02:25 Albumin 4.3 g/dL (3.4-5.0) 09/04/17 02:25 Globulin 3.4 g/dL (2.5-4.5) 09/04/17 02:25 Albumin/Globulin Ratio 1.3 Ratio (1.1-2.1) 09/04/17 02:25 Amylase 45 Units/L (25-115) 09/04/17 02:25 Lipase 144 Units/L (73-393) 09/04/17 02:25 Specimen Type Clean catch urine 09/04/17 02:47 Urine Color Nicole (YELLOW) 09/04/17 02:47 Urine Appearance Slightly hazy (CLEAR) 09/04/17 02:47 Urine pH 5.0 (5.0 - 8.0) 09/04/17 02:47 Ur Specific [place] 1.025 (1.000-1.030) 09/04/17 02:47 Urine Protein 2+ (NEGATIVE) 09/04/17 02:47 Urine Glucose (UA) Negative (NEGATIVE) 09/04/17 02:47 Urine Ketones 2+ (NEGATIVE) 09/04/17 02:47 Urine Occult Blood 1+ (NEGATIVE) 09/04/17 02:47 Urine Nitrite Negative (NEGATIVE) 09/04/17 02:47 Urine Bilirubin 1+ (NEGATIVE) 09/04/17 02:47 Urine Urobilinogen 2+ (NORMAL) 09/04/17 02:47 Ur Leukocyte Esterase 1+ (NEGATIVE) 09/04/17 02:47 Urine RBC Rare /HPF (NONE SEEN) 09/04/17 02:47 Urine WBC 0-2 /HPF (NONE SEEN) 09/04/17 02:47 Ur Squamous Epith Cells Few /HPF (NEGATIVE) 09/04/17 02:47 Calcium Oxalate Crystal Moderate /HPF (NEGATIVE) 09/04/17 02:47 Urine Bacteria Negative /HPF (NEGATIVE) 09/04/17 02:47 Urine Mucus Many /HPF (NEGATIVE) 09/04/17 02:47 Ur Culture Indicated? No/not indicated 09/04/17 02:47 - XRAY XRAY Interpreted by: Radiologist (CT abdomen and pelvis: Fat containing right inguinalhernia with adjacent stranding and bowel loos pole towards the hernia. Infectin here is possible. Hydrocele suspected.) - Diagnosis Discharge Problem: Right inguinal hernia, Hydrocele of testis, Testicular pain, right - Discharge Plan Disposition: ADMITTED INPATIENT Condition: Stable - Follow ups/Referrals Follow ups/Referrals: NFD,None [Primary Care Provider] - 3 days - Instructions
[2017-09-04] MEDS ORDERED: TORADOL 60 MG VIAL ONE (02:27)
[2017-09-04 02:40] LABS: BASOPHILS # (AUTO) 0.1 X10^3/uL (0.0-0.1); BASOPHILS % (AUTO) 1.1 % (0.2-1.0); EOSINOPHILS # (AUTO) 0.3 x10^3/uL (0.0-0.2); EOSINOPHILS % (AUTO) 3.5 % (0.9-2.9); HEMATOCRIT 43.6 % (42.0-54.0); HEMOGLOBIN 14.8 g/dL (13.5-18.0); LYMPHOCYTES # (AUTO) 2.8 X10^3/uL (1.3-2.9); LYMPHOCYTES % (AUTO) 34.6 % (21.0-51.0); MEAN CORPUSCULAR HEMOGLOBIN 31.7 pg (27.0-34.0); MEAN CORPUSCULAR HGB CONC 33.9 g/dL (33.0-35.0); MEAN CORPUSCULAR VOLUME 93.6 fL (80.0-100.0); MEAN PLATELET VOLUME 9.9 fL (7.4-11.0); MONOCYTES # (AUTO) 0.9 x10^3/uL (0.3-0.8); MONOCYTES % (AUTO) 11.5 % (0.0-13.0); NEUTROPHILS # (AUTO) 3.9 x10^3/uL (2.2-4.8); NEUTROPHILS % (AUTO) 49.3 % (42.0-75.0); PLATELET COUNT 289 X10^3/uL (150.0-450.0); RED BLOOD COUNT 4.66 X10^6/uL (4.7-6.0); RED CELL DISTRIBUTION WIDTH 13.1 % (11.6-16.5)
[2017-09-04 02:51] LABS: ALANINE AMINOTRANSFERASE 87 Units/L (12-78); ALBUMIN 4.3 g/dL (3.4-5.0); ALKALINE PHOSPHATASE 58 Units/L (46-116); AMYLASE 45 Units/L (25-115); ASPARTATE AMINO TRANSFERASE 30 Units/L (15-37); BLOOD UREA NITROGEN 15 mg/dL (7-18); CALCIUM 8.4 mg/dL (8.5-10.1); CHLORIDE 109 mmol/L (98-107); COR NA(FOR HYPERGLY) 147 mmol/L (136-145); CREATININE 0.89 mg/dL (0.70-1.30); LIPASE 144 Units/L (73-393); SODIUM 147 mmol/L (136-145); TOTAL PROTEIN 7.7 g/dL (6.4-8.2); eGFR BLACK RACES > 60 (>60); eGFR NON BLACK RACES > 60 (>60)
--- NOTE | 2017-09-04 03:21 | CT ---
CT abdomen and pelvis without contrast Indication: Hernia surgically repaired 2 weeks prior with painful scrotum Technique: Helical images through the abdomen and pelvis without contrast. Coronal and sagittal refor mats provided. Comparison: 08/14/2017 CT Findings: Limited images through the lower chest shows no acute abnormality. Review of bone windows s hows no destructive osseous lesion. Abdomen: Lack of contrast limits sensitivity for solid organ abnormality. The gallbladder, liver, lion creas, spleen, adrenal glands and kidneys are within normal limits for noncontrast study. The stomach is distended with gastroesophageal reflux noted. Small bowel is normal. No acute colonic abnormaliti es seen. The appendix is normal. Minimal vascular calcifications noted. Small fat containing umbilical hernia noted. There is extensive stranding at the right lower quadrant, with a loop of bowel pulled towards the rig ht inguinal hernia which contains fat. No obstructing bowel loop identified. Hydroceles are suspected within the scrotum. Large stool ball seen in the rectum. The prostate gland and urinary bladder appe ar normal. Impression: 1. Fat containing right inguinal hernia with adjacent stranding and bowel loops pole towards the alvarado ia. Infection here is possible. 2. Hydrocele suspected in the scrotum. Acute scrotal pathology cannot be excluded. 3. Distended stomach with gastroesophageal reflux. Correlate clinically for signs of gastric outlet o bstruction or gastroparesis. 4. Large stool ball in the rectum. Reported By:
[2017-09-04 03:33] LABS: BILIRUBIN,URINE 1+ (NEGATIVE); BLOOD/HEMOGLOBIN,URINE 1+ (NEGATIVE); GLUCOSE, URINE NEGATIVE (NEGATIVE); KETONES,URINE 2+ (NEGATIVE); LEUKOCYTE ESTERASE ,URINE 1+ (NEGATIVE); NITRITES,URINE NEGATIVE (NEGATIVE); PROTEIN,URINE 2+ (NEGATIVE); UROBILINOGEN,URINE 2+ (NORMAL)
[2017-09-04 03:44] LABS: APPEARANCE,URINE SLIGHTLY HAZY (CLEAR); COLOR,URINE AMBER (YELLOW)
[2017-09-04 03:45] LABS: BACTERIA,URINE NEGATIVE /HPF (NEGATIVE); CALCIUM OXALATE CRYSTALS,UR MODERATE /HPF (NEGATIVE); MUCUS,URINE MANY /HPF (NEGATIVE); RBC,URINE RARE /HPF (NONE SEEN); SQUAMOUS EPITHELIAL CELL,UR FEW /HPF (NEGATIVE)
[2017-09-04] MEDS ORDERED: ROCEPHIN 1 GM IV PREMIX 1 GM/50 ML IV.SOLN. IV ONE (03:55)
[2017-09-04] MEDS ORDERED: ZOFRAN INJ 4 MG VIAL IVP PRN ×2 (03:56→04:06)
[2017-09-04] MEDS ORDERED: NS 1/2 + KCL 20 MEQ/L 1,000 ML IV SCH (04:00)
[2017-09-04] MEDS ORDERED: ROCEPHIN 1 GM IV PREMIX IV SCH (04:00)
[2017-09-04] MEDS ORDERED: PEPCID 20 MG IV PREMIX* 20 MG/50 ML BAG IV PRN (04:06)
[2017-09-04] MEDS ORDERED: NS 1/2 1000 ML IV 1,000 ML IV ONE ×2 (04:07→12:18)
[2017-09-04] MEDS: NS 1/2 1000 ML IV 1,000 ML IV SCH ×3 (05:30→21:48)
[2017-09-04 05:52] VITALS: BMI 30.5
[2017-09-04] MEDS: TORADOL 30 MG VIAL IVP PRN ×3 (07:02→21:47)
[2017-09-04] MEDS: PROTONIX INJ 40 MG VIAL IVP SCH ×2 (12:21→21:47)
[2017-09-04] MEDS ORDERED: NS 100 ML IV + SPIKE MINIBAG* 100 ML IV ONE ×2 (16:52→20:46)
[2017-09-04] MEDS: ZOSYN VIAL 4.5 GM IV SCH ×2 (17:13→21:48)
[2017-09-04 17:59] LABS: BASOPHILS # (AUTO) 0.1 X10^3/uL (0.0-0.1); BASOPHILS % (AUTO) 1.2 % (0.2-1.0); EOSINOPHILS # (AUTO) 0.4 x10^3/uL (0.0-0.2); EOSINOPHILS % (AUTO) 4.7 % (0.9-2.9); HEMATOCRIT 41.1 % (42.0-54.0); HEMOGLOBIN 13.9 g/dL (13.5-18.0); LYMPHOCYTES # (AUTO) 2.2 X10^3/uL (1.3-2.9); LYMPHOCYTES % (AUTO) 26.2 % (21.0-51.0); MEAN CORPUSCULAR HEMOGLOBIN 31.9 pg (27.0-34.0); MEAN CORPUSCULAR HGB CONC 33.8 g/dL (33.0-35.0); MEAN CORPUSCULAR VOLUME 94.3 fL (80.0-100.0); MEAN PLATELET VOLUME 10.2 fL (7.4-11.0); MONOCYTES # (AUTO) 0.9 x10^3/uL (0.3-0.8); MONOCYTES % (AUTO) 10.9 % (0.0-13.0); NEUTROPHILS # (AUTO) 4.8 x10^3/uL (2.2-4.8); PLATELET COUNT 246 X10^3/uL (150.0-450.0); RED BLOOD COUNT 4.35 X10^6/uL (4.7-6.0); RED CELL DISTRIBUTION WIDTH 13.9 % (11.6-16.5); WHITE BLOOD COUNT 8.4 X10^3/uL (3.6-10.0)
--- NOTE | 2017-09-04 20:38 | DR.CONSULT ---
Consult - Consultation for Day of: Date: 09/04/17 - Chief Complaint Chief Complaint: Recurrent right inguinal hernia - Allergies Allergies/Adverse Reactions: Allergies Allergy/AdvReac Type Severity Reaction Status Date / Time No Known Drug Allergies Allergy Verified 09/04/17 04:19 - History of Present Illness History of Present Illness: The patient is a 37 year old male who presented to the ER with gradual worsening pain in the right inguinal region x 5 days. The patient underwent repair of a recurrent right inguinal hernia approximately 3 weeks ago with plug and mesh placement. On the intial repair, no mesh was placed due to bowel resection according to Mr. Jones. (-) obstructive symptoms. (-) fever / chills. (-) lifting or straining. The patient does admit to intermittent sneezing. A CT of the abdomen and pelvis in the ER confirms a recurrent right inguinal hernia. - Past Medical History Past Medical History: GERD - Past Surgical History Surgical History: Bowel Resection, Other (Right inguinal hernia repair x 2.) - Family History Family Medical History: Diabetes Mellitus, Cancer, [place], Coronary Artery Disease - Social History Have you used tobacco products in the last 12 months: Yes Type of Tobacco Use: Cigarettes How many years tobacco product used: 21 Alcohol Use: None Drug Use: None - Medications Home Medications: No Known Home Medications 1 : XX PRN PRN 09/04/17 [History Confirmed 09/04/17] - Review of Systems Constitutional: No Symptoms Reported Eyes: No Symptoms Reported ENT: No Symptoms Reported Respiratory: No Symptoms Reported Cardiovascular: No Symptoms Reported Gastrointestinal: Abdominal Pain Genitourinary: No Symptoms Reported Musculoskeletal: No Symptoms Reported Skin: No Symptoms Reported Neurological: No Symptoms Reported - Physical Exam Vital Signs: Temperature 97.9 F Pulse Rate [Right Radial] 52 Respiratory Rate 20 Blood Pressure [Right Arm] 119/62 Blood Pressure 143/70 O2 Sat by Pulse Oximetry 99 Oriented: Normal Eyes: Normal Ear: Normal Nose: Normal Throat: Normal Respiratory: Clear Throughout Cardiovascular: Normal : Normal Auscultation: Bowel Sounds: Normal Palpation: Other (Right inguinal hernia - bulge just superior and medial to incision that is well healed. Reducible.) Tenderness: Mild (Right inguinal canal.) Skin: Normal Musculoskeletal: Normal Psychiatric: Normal Mood Description: Calm Affect: Normal Speech Pattern: Clear, Appropriate - Plan Plan: 37 year old male with recurrent right inguinal hernia s/p repair x 2. (- ) Obstructive symptoms. No signs of incarcerated bowel. Mild stranding on CT likely related to inflamatory changes involved with mesh placement. No signs of infection on physical exam. However, the patient complains of pain in the region that is worsening. Needs repair. May need lap repair. Will plan on surgery Wednesday am. Continue pain control with narcotics as needed. No need for emergent intervention. Increased risk of recurrence and complications were discussed with the patient who request surgery.
[2017-09-05] MEDS ORDERED: NS 1/2 1000 ML IV 1,000 ML IV ONE ×2 (05:06→22:25)
[2017-09-05] MEDS: NS 1/2 1000 ML IV 1,000 ML IV SCH ×3 (05:20→22:47)
[2017-09-05] MEDS ORDERED: NS 100 ML IV + SPIKE MINIBAG* 100 ML IV ONE ×3 (05:43→20:48)
[2017-09-05] MEDS: ZOSYN VIAL 4.5 GM IV SCH ×3 (06:21→22:00)
[2017-09-05 06:41] LABS: BASOPHILS % (AUTO) 0.5 % (0.2-1.0); EOSINOPHILS # (AUTO) 0.3 x10^3/uL (0.0-0.2); EOSINOPHILS % (AUTO) 4.1 % (0.9-2.9); HEMATOCRIT 40.7 % (42.0-54.0); HEMOGLOBIN 13.9 g/dL (13.5-18.0); LYMPHOCYTES # (AUTO) 2.5 X10^3/uL (1.3-2.9); LYMPHOCYTES % (AUTO) 34.4 % (21.0-51.0); MEAN CORPUSCULAR HGB CONC 34.1 g/dL (33.0-35.0); MEAN CORPUSCULAR VOLUME 93.6 fL (80.0-100.0); MEAN PLATELET VOLUME 10.4 fL (7.4-11.0); MONOCYTES # (AUTO) 0.7 x10^3/uL (0.3-0.8); MONOCYTES % (AUTO) 10.3 % (0.0-13.0); NEUTROPHILS # (AUTO) 3.7 x10^3/uL (2.2-4.8); NEUTROPHILS % (AUTO) 50.7 % (42.0-75.0); PLATELET COUNT 240 X10^3/uL (150.0-450.0); RED BLOOD COUNT 4.35 X10^6/uL (4.7-6.0); RED CELL DISTRIBUTION WIDTH 13.2 % (11.6-16.5); WHITE BLOOD COUNT 7.3 X10^3/uL (3.6-10.0)
[2017-09-05 06:53] LABS: ALANINE AMINOTRANSFERASE 75 Units/L (12-78); ALBUMIN 3.4 g/dL (3.4-5.0); ALKALINE PHOSPHATASE 44 Units/L (46-116); ASPARTATE AMINO TRANSFERASE 28 Units/L (15-37); BLOOD UREA NITROGEN 6 mg/dL (7-18); CALCIUM 8.2 mg/dL (8.5-10.1); CARBON DIOXIDE 26.5 mmol/L (21-32); CHLORIDE 108 mmol/L (98-107); COR NA(FOR HYPERGLY) 143 mmol/L (136-145); CREATININE 0.69 mg/dL (0.70-1.30); SODIUM 143 mmol/L (136-145); TOTAL PROTEIN 6.4 g/dL (6.4-8.2); eGFR BLACK RACES > 60 (>60); eGFR NON BLACK RACES > 60 (>60)
[2017-09-05] MEDS: PROTONIX INJ 40 MG VIAL IVP SCH ×2 (09:19→22:00)
--- NOTE | 2017-09-05 09:59 | DR.H&P ---
H&P - History & Physical for Day of: H&P Date: 09/04/17 - Chief Complaint Chief Complaint: RIGHT LOWER ABDOMINAL PAIN, RIGHT TESTICULAR PAIN - Allergies Allergies/Adverse Reactions: Allergies Allergy/AdvReac Type Severity Reaction Status Date / Time No Known Drug Allergies Allergy Verified 09/04/17 04:19 - History of Present Illness History of Present Illness: 37 WM ER ADMIT AFTER PRESENTING WITH CO RIGHT INGUINAL HERNIA REPAIR ~3 WEEKS AGO. PT STATES ONSET OF SAME PAIN TO POST OPERATIVE SITE WITH RIGHT TESTICULAR PAIN. PT ADMITTED FOR PAIN CONTROL SURGICAL CONSULT - Past Medical History Past Medical History: GERD - Past Surgical History Surgical History: Bowel Resection, Other (Right inguinal hernia repair x 2.) - Family History Family Medical History: Diabetes Mellitus, Cancer, [place], Coronary Artery Disease - Social History Have you used tobacco products in the last 12 months: Yes Type of Tobacco Use: Cigarettes How many years tobacco product used: 21 Alcohol Use: None Drug Use: None - Medications Home Medications: No Known Home Medications 1 : XX PRN PRN 09/04/17 [History Confirmed 09/04/17] - Review of Systems Constitutional: No Symptoms Reported Eyes: No Symptoms Reported ENT: No Symptoms Reported Respiratory: No Symptoms Reported Cardiovascular: No Symptoms Reported Gastrointestinal: Abdominal Pain Genitourinary: No Symptoms Reported Musculoskeletal: No Symptoms Reported Skin: No Symptoms Reported Neurological: No Symptoms Reported - Physical Exam Vital Signs: Temperature 97.7 F Pulse Rate [Right Radial] 53 Respiratory Rate 18 Blood Pressure [Right Arm] 127/83 Blood Pressure 143/70 O2 Sat by Pulse Oximetry 97 Oriented: Normal Eyes: Normal Ear: Normal Nose: Normal Throat: Normal Respiratory: Clear Throughout Cardiovascular: Normal : Normal Auscultation: Bowel Sounds: Normal Tenderness: RLQ, Suprapubic Skin: Normal Musculoskeletal: Normal Psychiatric: Normal Affect: Anxious Speech Pattern: Clear, Appropriate - Assessment/Plan (1) Right inguinal hernia Status: Acute Plan: PAIN CONTROL, SURGICAL CONSULT. REPEAT AM LABS (2) Hydrocele of testis Status: Acute
--- NOTE | 2017-09-05 14:01 | PCM.PROG ---
Progress Note - Progress Note for Day of Date: 09/05/17 (SCRIBE FOR DR MIRZA) - Subjective Subjective: he patient is a 37 year old male who was an ER admit after presentingn with gradual worsening pain in the right inguinal region x 5 days. The patient underwent repair of a recurrent right inguinal hernia approximately 3 weeks ago with plug and mesh placement. On the intial repair, no mesh was placed due to bowel resection according to Mr. Jones. A CT of the abdomen and pelvis in the ER confirms a recurrent right inguinal hernia. Dr Donnelly consulting, pain control - Past Medical Family Social History Past Med/Fam/Surg Hx: No changes since H&P Allergies: Allergies No Known Drug Allergies Allergy (Verified 09/04/17 04:19) - Review of Systems ROS: No change since H&P - Vital Signs and I&O's Vital Signs: Temperature 98.2 F Pulse Rate [Right Radial] 48 Respiratory Rate 20 Blood Pressure [Right Arm] 111/69 Blood Pressure 143/70 O2 Sat by Pulse Oximetry 98 Intake and Output: Intake & Output 09/03/17 09/04/17 09/05/17 09/06/17 11:59 11:59 11:59 11:59 Intake Total 125 2940 Balance 125 2940 - Physical Exam Oriented: Normal Eyes: Normal Ear: Normal Nose: Normal Throat: Normal Respiratory: Normal Cardiovascular: Normal : Normal Auscultation: Bowel Sounds: Normal Tenderness: RLQ, Suprapubic Skin: Normal Musculoskeletal: Normal Psychiatric: Normal Mood Description: Calm Affect: Anxious Speech Pattern: Clear, Appropriate - Laboratory and Diagnostics Result Diagrams: 09/05/17 05:23 09/05/17 05:23 Labs: Laboratory WBC 7.3 X10^3/uL (3.6-10.0) 09/05/17 05:23 RBC 4.35 X10^6/uL (4.7-6.0) L 09/05/17 05:23 Hgb 13.9 g/dL (13.5-18.0) 09/05/17 05:23 Hct 40.7 % (42.0-54.0) L 09/05/17 05:23 MCV 93.6 fL (80.0-100.0) 09/05/17 05:23 MCH 32.0 pg (27.0-34.0) 09/05/17 05:23 MCHC 34.1 g/dL (33.0-35.0) 09/05/17 05:23 RDW 13.2 % (11.6-16.5) 09/05/17 05:23 Plt Count 240 X10^3/uL (150.0-450.0) 09/05/17 05:23 MPV 10.4 fL (7.4-11.0) 09/05/17 05:23 Neut % 50.7 % (42.0-75.0) 09/05/17 05:23 Lymph % 34.4 % (21.0-51.0) 09/05/17 05:23 [place] % 10.3 % (0.0-13.0) 09/05/17 05:23 Eos % 4.1 % (0.9-2.9) H 09/05/17 05:23 Baso % 0.5 % (0.2-1.0) 09/05/17 05:23 Neut # 3.7 x10^3/uL (2.2-4.8) 09/05/17 05:23 Lymph # 2.5 X10^3/uL (1.3-2.9) 09/05/17 05:23 [place] # 0.7 x10^3/uL (0.3-0.8) 09/05/17 05:23 Eos # 0.3 x10^3/uL (0.0-0.2) H 09/05/17 05:23 Baso # 0.0 X10^3/uL (0.0-0.1) 09/05/17 05:23 Absolute Nucleated RBC 0.2 /100WBC 09/05/17 05:23 Sodium 143 mmol/L (136-145) 09/05/17 05:23 Corrected Sodium 143 mmol/L (136-145) 09/05/17 05:23 Potassium 3.5 mmol/L (3.5-5.1) 09/05/17 05:23 Chloride 108 mmol/L (98-107) H 09/05/17 05:23 Carbon Dioxide 26.5 mmol/L (21-32) 09/05/17 05:23 BUN 6 mg/dL (7-18) L 09/05/17 05:23 Creatinine 0.69 mg/dL (0.70-1.30) L 09/05/17 05:23 Est GFR (MDRD) Af Amer > 60 (>60) 09/05/17 05:23 Est GFR (MDRD) Non-Af > 60 (>60) 09/05/17 05:23 Glucose 116 mg/dL (65-99) H 09/05/17 05:23 Calcium 8.2 mg/dL (8.5-10.1) L 09/05/17 05:23 Corrected Calcium TNP 09/05/17 05:23 Total Bilirubin 0.50 mg/dL (0.2-1.0) 09/05/17 05:23 AST 28 Units/L (15-37) 09/05/17 05:23 ALT 75 Units/L (12-78) 09/05/17 05:23 Alkaline Phosphatase 44 Units/L (46-116) L 09/05/17 05:23 Total Protein 6.4 g/dL (6.4-8.2) 09/05/17 05:23 Albumin 3.4 g/dL (3.4-5.0) 09/05/17 05:23 Globulin 3.0 g/dL (2.5-4.5) 09/05/17 05:23 Albumin/Globulin Ratio 1.1 Ratio (1.1-2.1) 09/05/17 05:23 Amylase 45 Units/L (25-115) 09/04/17 02:25 Lipase 144 Units/L (73-393) 09/04/17 02:25 Specimen Type Clean catch urine 09/04/17 02:47 Urine Color Nicole (YELLOW) 09/04/17 02:47 Urine Appearance Slightly hazy (CLEAR) 09/04/17 02:47 Urine pH 5.0 (5.0 - 8.0) 09/04/17 02:47 Ur Specific [place] 1.025 (1.000-1.030) 09/04/17 02:47 Urine Protein 2+ (NEGATIVE) 09/04/17 02:47 Urine Glucose (UA) Negative (NEGATIVE) 09/04/17 02:47 Urine Ketones 2+ (NEGATIVE) 09/04/17 02:47 Urine Occult Blood 1+ (NEGATIVE) 09/04/17 02:47 Urine Nitrite Negative (NEGATIVE) 09/04/17 02:47 Urine Bilirubin 1+ (NEGATIVE) 09/04/17 02:47 Urine Urobilinogen 2+ (NORMAL) 09/04/17 02:47 Ur Leukocyte Esterase 1+ (NEGATIVE) 09/04/17 02:47 Urine RBC Rare /HPF (NONE SEEN) 09/04/17 02:47 Urine WBC 0-2 /HPF (NONE SEEN) 09/04/17 02:47 Ur Squamous Epith Cells Few /HPF (NEGATIVE) 09/04/17 02:47 Calcium Oxalate Crystal Moderate /HPF (NEGATIVE) 09/04/17 02:47 Urine Bacteria Negative /HPF (NEGATIVE) 09/04/17 02:47 Urine Mucus Many /HPF (NEGATIVE) 09/04/17 02:47 Ur Culture Indicated? No/not indicated 09/04/17 02:47 - Plan (1) Right inguinal hernia Status: Acute Plan: PAIN CONTROL, SURGICAL CONSULT. REPEAT AM LABS (2) Hydrocele of testis Status: Acute
[2017-09-06 00:03] LABS: BASOPHILS # (AUTO) 0.1 X10^3/uL (0.0-0.1); EOSINOPHILS # (AUTO) 0.4 x10^3/uL (0.0-0.2); HEMOGLOBIN 15.7 g/dL (13.5-18.0); LYMPHOCYTES # (AUTO) 2.2 X10^3/uL (1.3-2.9)
[2017-09-06 00:15] LABS: BASOPHILS % (AUTO) 1.1 % (0.2-1.0); EOSINOPHILS % (AUTO) 5.6 % (0.9-2.9); HEMATOCRIT 47.2 % (42.0-54.0); LYMPHOCYTES % (AUTO) 29.9 % (21.0-51.0); MEAN CORPUSCULAR HEMOGLOBIN 31.6 pg (27.0-34.0); MEAN CORPUSCULAR HGB CONC 33.3 g/dL (33.0-35.0); MEAN CORPUSCULAR VOLUME 94.8 fL (80.0-100.0); MONOCYTES # (AUTO) 0.8 x10^3/uL (0.3-0.8); MONOCYTES % (AUTO) 10.6 % (0.0-13.0); NEUTROPHILS # (AUTO) 3.9 x10^3/uL (2.2-4.8); NEUTROPHILS % (AUTO) 52.8 % (42.0-75.0); PLATELET COUNT 280 X10^3/uL (150.0-450.0); RED BLOOD COUNT 4.98 X10^6/uL (4.7-6.0); RED CELL DISTRIBUTION WIDTH 13.6 % (11.6-16.5); WHITE BLOOD COUNT 7.4 X10^3/uL (3.6-10.0)
[2017-09-06] MEDS: TORADOL 30 MG VIAL IVP PRN ×3 (04:55→21:56)
[2017-09-06] MEDS: NS 1/2 1000 ML IV 1,000 ML IV SCH ×3 (05:06→21:53)
[2017-09-06] MEDS ORDERED: NS 100 ML IV + SPIKE MINIBAG* 100 ML IV ONE ×3 (05:23→19:26)
[2017-09-06] MEDS: ZOSYN VIAL 4.5 GM IV SCH ×3 (05:58→21:53)
[2017-09-06 06:26] LABS: ALANINE AMINOTRANSFERASE 79 Units/L (12-78); ALBUMIN 3.4 g/dL (3.4-5.0); ALKALINE PHOSPHATASE 48 Units/L (46-116); ASPARTATE AMINO TRANSFERASE 31 Units/L (15-37); BLOOD UREA NITROGEN 6 mg/dL (7-18); CALCIUM 8.2 mg/dL (8.5-10.1); CARBON DIOXIDE 27.1 mmol/L (21-32); CHLORIDE 109 mmol/L (98-107); CREATININE 0.74 mg/dL (0.70-1.30); SODIUM 146 mmol/L (136-145); TOTAL PROTEIN 6.9 g/dL (6.4-8.2); eGFR BLACK RACES > 60 (>60); eGFR NON BLACK RACES > 60 (>60)
[2017-09-06] MEDS ORDERED: NS 1000 ML 1,000 ML ONE (08:15)
[2017-09-06] MEDS ORDERED: ANCEF 1 GM IV PREMIX* 1 GM/50 ML BAG IV ONE (08:15)
[2017-09-06] MEDS: PROTONIX INJ 40 MG VIAL IVP SCH ×2 (08:15→21:53)
[2017-09-06] MEDS ORDERED: XYLOCAINE 1% and EPINEPHRINE 1:100,000 ONE ×2 (08:36→09:18)
[2017-09-06] MEDS ORDERED: MARCAINE 0.25% INJ ONE (08:36)
[2017-09-06] MEDS ORDERED: FENTANYL INJ 100 mcg ONE (08:44)
[2017-09-06] MEDS ORDERED: DILAUDID INJ ONE (08:44)
[2017-09-06] MEDS ORDERED: VANCOMYCIN HCL 1 GM VIAL ONE (08:45)
[2017-09-06] MEDS ORDERED: NS 500 ML IV 500 ML IV ONE (08:45)
[2017-09-06] MEDS ORDERED: TORADOL 30 MG VIAL ONE (09:30)
[2017-09-06] MEDS ORDERED: NEOSTIGMINE INJ ONE (09:30)
[2017-09-06] MEDS ORDERED: VERSED ONE (09:30)
[2017-09-06] MEDS ORDERED: NORCURON INJ 10 MG VIAL ONE (09:30)
[2017-09-06] MEDS ORDERED: QUELICIN (OR ANECTINE) ONE (09:30)
[2017-09-06] MEDS ORDERED: ATROPINE SULFATE ONE (09:30)
[2017-09-06] MEDS ORDERED: DIPRIVAN VIAL ONE (09:30)
[2017-09-06] MEDS ORDERED: ROBINUL ONE (09:30)
[2017-09-06] MEDS ORDERED: ULTANE GAS IN ONE (09:30)
[2017-09-06] MEDS ORDERED: NS IRRIGATION 1000 ML 1,000 ML IR ONE (11:14)
[2017-09-06] MEDS ORDERED: BENADRYL INJ 50 MG VIAL IVP PRN (11:36)
[2017-09-06] MEDS ORDERED: REGLAN INJ 10 MG VIAL IVP PRN (11:36)
[2017-09-06] MEDS ORDERED: PHENERGAN INJ 25 MG IVP PRN (11:36)
[2017-09-06] MEDS ORDERED: ZOFRAN INJ 4 MG VIAL IVP PRN (11:36)
--- NOTE | 2017-09-06 11:39 | OR.GENERIC ---
Post-Op Note Generic - Post-Op Note Operative Report: Date of Operation: September 06, 2017 Pre-Operative Diagnosis: Recurrent right inguinal hernia. Post-Operative Diagnosis: Recurrent right indirect inguinal hernia. Procedure: Open inguinal hernia repair with mesh (Ethicon Ultrapro large). Surgeon: Bairon Donnelly MD. Paper Finisher: Elli Perla CRNA. Specimens: Hernia sac. Estimated blood loss: Minimal. Complications: None. Summary: The patient is a 37 year old male who presented with a recurrent right inguinal hernia. The patient underwent tissue repair initially with bowel resection. Recently, the patient presented with an incarcerated inguinal hernia that was repaired with a plug and overlay mesh. However, the patient developed a bulge last week with pain. A CT of the abdomen and pelvis demonstrated a fat containing right inguinal hernia. The patient was offered inguinal hernia repair. The risk and benefits of the procedure including difficulty with anesthesia, bleeding, infection, injury to intraabdominal contents requiring further surgery, recurrence, nerve injury, injury to cord structures requiring orchiectomy, chronic pain, DVT, as well as PE were discussed with the patient. The patient understood these risks and requested the procedure. On September 06, 2017, the patient was brought to the operative theatre. A time out was performed verifying the patient and procedure. 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 After satisfactory induction of general endotracheal anesthesia, the abdomen and groin were prepped with Chloraprep and draped in the usual sterile fashion. Local anesthetic was infiltrated one fingerbreadth medial and inferior to the right anterior superior iliac spine (ASIS). Next the skin between the pubic tubercle and the ASIS was anesthetized using local and incised with a scalpel in the previous incision. The incision was carried through the subcutaneous tissue and Scarpas fascia using electrocautery. The external oblique fibers were cleared bluntly. Dense scarring was noted. A hernia sac was noted medially. The hernia sac was cleared through careful dissection. The external oblique fibers were cleared from the hernia sac and opened using blunt and sharp dissection. Again, dense scarring was encountered. The external obliques were mobilized using blunt dissection. The cord structures were encircled at the pubic tubercle and a stephanie placed around the cord. The hernia sac was bluntly dissected away from the cord structures. Previously placed sutures were noted in this region but the mesh could not be easily identified for explantation. The hernia sac was opened and the peritoneal contents placed back inside the abdomen. The redundant sac was removed using electrocautery. The hernia sac was closed using a 0-Vicryl purse string. A mesh plug (two disks) was placed beside the cord in the internal ring. The inner disk was allowed to expand. The outer disk was tacked into position with interrupted 2-0 Prolene sutures. A Prolene overlay mesh was fashioned to fit the inguinal floor. The apex of the mesh was anchored to the periosteum at the pubic tubercle with a 2-0 Prolene suture. Fibrin glue was injected over the overlay mesh and allowed to set. The external oblique fibers were re- approximated using a running 2-0 Vicryl suture. The wound was irrigated. Bleeding was controlled using electrocautery. Scarpas fascia was re- approximated using interrupted 3-0 Vicryl sutures. The dermis was re- approximated using inverted, interrupted 3-0 Vicryl sutures. The skin edges were re-approximated using skin mikal. A sterile dressing was placed. The right testicle was palpated in the scrotum. The patient was awakened and taken to the recovery room in stable condition. There were no complications. All counts were correct.
[2017-09-06] MEDS: DILAUDID INJ IVP PRN ×3 (11:46→11:59)
[2017-09-06] MEDS: PERCOCET TAB 5/325 MG PO PRN ×3 (12:31→23:42)
[2017-09-06] MEDS ORDERED: NS 1/2 1000 ML IV 1,000 ML IV ONE (19:24)
[2017-09-07] MEDS: NS 1/2 1000 ML IV 1,000 ML IV SCH ×2 (04:01→13:35)
[2017-09-07] MEDS: PERCOCET TAB 5/325 MG PO PRN ×3 (04:02→15:54)
[2017-09-07] MEDS ORDERED: NS 100 ML IV + SPIKE MINIBAG* 100 ML IV ONE ×2 (04:23→12:35)
[2017-09-07] MEDS: TORADOL 30 MG VIAL IVP PRN (05:09)
[2017-09-07] MEDS: ZOSYN VIAL 4.5 GM IV SCH ×2 (05:10→13:06)
[2017-09-07 05:52] LABS: ALANINE AMINOTRANSFERASE 73 Units/L (12-78); ALBUMIN 2.9 g/dL (3.4-5.0); ALKALINE PHOSPHATASE 44 Units/L (46-116); ASPARTATE AMINO TRANSFERASE 33 Units/L (15-37); BLOOD UREA NITROGEN 14 mg/dL (7-18); CALCIUM 7.5 mg/dL (8.5-10.1); CARBON DIOXIDE 25.1 mmol/L (21-32); CHLORIDE 109 mmol/L (98-107); COR CA(FOR HYPOALB) 8.4 mg/dL (8.5-10.1); CREATININE 2.29 mg/dL (0.70-1.30); SODIUM 143 mmol/L (136-145); TOTAL PROTEIN 6.1 g/dL (6.4-8.2); eGFR BLACK RACES 42 (>60); eGFR NON BLACK RACES 34 (>60)
[2017-09-07] MEDS: PROTONIX INJ 40 MG VIAL IVP SCH (09:24)
[2017-09-07] MEDS ORDERED: NS 1/2 1000 ML IV 1,000 ML IV ONE (12:35)
[2017-09-07 16:26] VITALS: BP 107/57
== END 2017-09-07 20:20 | disposition home or self-care (01) ==
LOC: ER 01:57 → MED/SURG 04:04
PROVIDERS: ADMIT Internal Medicine; ATTEND Internal Medicine
PROC: 0YU50JZ Supplement Right Inguinal Region with Synthetic Substitute, Open Approach (ICD-10-PCS; principal; 2017-09-06 08:30)
DX: K40.91 Unilateral inguinal hernia, without obstruction or gangrene, recurrent (principal); Z86.14 Personal history of Methicillin resistant Staphylococcus aureus infection; N43.3 Hydrocele, unspecified; K21.9 Gastro-esophageal reflux disease without esophagitis; Z98.0 Intestinal bypass and anastomosis status; Z98.890 Other specified postprocedural states; R10.31 Right lower quadrant pain; N50.819 Testicular pain, unspecified
CPT/HCPCS: 36415; 74176; 80053; 81001; 82150; 82378; 83690; 85025; 96365; 96367; 96372; 96375; 99218; 99284; A4216; A4222; C9113; S0020; G0378; J0330; J0690; J0696; J1170; J1885; J2001; J2250; J2405; J2543; J2550; J2710; J3010; J3370; J3490